=== PATIENT | female | born 2000 | race Caucasian/White ===

== ENCOUNTER 2023-10-24 22:44 | Emergency (ER) | payer BC ==
[~2023-10-24] VITALS: Ht 154.9 cm; Wt 55.8 kg
[2023-10-24 23:07] VITALS: BP_SYST 109; PULSE 78; RESP 18; TEMP 98.2; O2SAT 100
[2023-10-24 23:52] LABS: BASOPHILS % (AUTO) 0.3 % (0.0-2.0); EOSINOPHILS % (AUTO) 0.2 % (0.0-4.0); HEMATOCRIT 39.7 % (36-48); HEMOGLOBIN 13.2 g/dL (12.0-16.0); LYMPHOCYTES # (AUTO) 1.6 K/uL (1.0-5.5); LYMPHOCYTES % (AUTO) 13.4 % (20.5-51.5); MEAN CORPUSCULAR HEMOGLOBIN 33 pg (27-31); MEAN CORPUSCULAR HGB CONC 33 % (32-36); MEAN CORPUSCULAR VOLUME 98 fL (79.0-98.0); MONOCYTES % (AUTO) 8.6 % (1.7-9.3); NEUTROPHILS # (AUTO) 9.3 K/uL (1.8-7.7); NEUTROPHILS % (AUTO) 77.5 % (40.0-70.0); PLATELET COUNT (AUTO) 180 K/uL (130-430); RED BLOOD CELL COUNT(AUTO) 4.07 MIL/uL (4.2-6.2); RED CELL DISTRIBUTION WIDTH 13.9 % (9.0-15.0)
[2023-10-25 00:15] LABS: CREATININE 0.6 mg/dL (0.55-1.30); POTASSIUM 3.9 mmol/L (3.5-5.1)
[2023-10-25 00:20] LABS: INR 1.1 (0.8-1.2)
[2023-10-25 02:50] VITALS: BP_SYST 112; PULSE 78; RESP 18; TEMP 98.3; O2SAT 99
== END 2023-10-25 02:50 | disposition home or self-care (01) ==
LOC: SED 22:44
DX: O46.92 Antepartum hemorrhage, unspecified, second trimester (principal); O04.80 (Induced) termination of pregnancy with unspecified complications; Z3A.18 18 weeks gestation of pregnancy
CPT/HCPCS: 36415; 76805; 80048; 81025; 84702; 85025; 85610; 85730; 86886; 86900; 86901; 99284